=== PATIENT | male | born 1945 | race Two or more races ===

== ENCOUNTER 2023-05-07 09:12 | Outpatient (CLI) | payer OTHER | END 2023-05-07 09:18 | disposition home or self-care (01) | LOC: RX STUDY 09:12 | PROVIDERS: ATTEND Internal Medicine | DX: R10.13 Epigastric pain (principal); R13.12 Dysphagia, oropharyngeal phase; K63.4 Enteroptosis; K21.00 Gastro-esophageal reflux disease with esophagitis, without bleeding ==